=== PATIENT | female | born 1955 | race Caucasian/White ===

== ENCOUNTER 2018-04-04 06:07 | Day surgery (SDC) | payer OTHER ==
[2018-04-02 14:47] VITALS: BMI 23.9
[2018-04-04 07:03] LABS: BASO # 0.02 K/mm3 (0.0-2.0); BASO % 0.2 % (0.0-3.0); EOS # 0.1 (0.0-0.7); GRAN # 4.43 (1.4-6.5); GRAN % 50.6 % (50.0-68.0); HEMOGLOBIN 13.4 g/dL (12.0-16.0); LYMPH # 3.5 (1.2-3.4); LYMPH % 40.4 % (22.0-35.0); MEAN CELL VOLUME 69.2 fl (80.0-105.0); MEAN CORPUSCULAR HEMOGLOBIN 22.2 pg (25.0-35.0); MEAN CORPUSCULAR HGB CONC 32.1 g/dl (31.0-37.0); MONO # 0.7 (0.1-0.6); MONO % 7.8 % (1.0-6.0); RBC 6.03 10^6/uL (3.5-6.1); RED CELL DISTRIBUTION WIDTH 16.1 % (11.5-14.5); WHITE BLOOD COUNT 8.8 10^3/uL (4.5-11.0)
[2018-04-04 07:09] LABS: INR 0.92; PARTIAL THROMBOPLASTIN TIME 27.6 Seconds (25.1-36.5); PROTHROMBIN TIME 10.6 SECONDS (9.4-12.5)
[2018-04-04 07:13] LABS: BLOOD UREA NITROGEN 11 mg/dL (7-21); GFR NON-AFRICAN AMERICAN > 60; HDL CHOLESTEROL 52 mg/dL (29-60)
[2018-04-04 07:23] LABS: LDL CHOLESTEROL 48 mg/dL (0-129)
[2018-04-04] MEDS ORDERED: Iohexol 350mgl/ml 50 ML ONE (07:25)
[2018-04-04] MEDS ORDERED: Lidocaine 2% Inj (20ml) ONE (07:25)
[2018-04-04] MEDS ORDERED: Midazolam 2 MG/2 ML VIAL ONE ×2 (07:43→07:47)
[2018-04-04] MEDS ORDERED: Sodium Chloride 0.9% 1,000 ML IV SCH (08:30)
--- NOTE | 2018-04-04 09:55 | CARD ---
APPROVED REPORT Date of service: 04/04/2018 EKG Measurement Heart [id number] MS 126P-26 [id number] <Conclusion> Sinus bradycardia Otherwise normal ECG
--- NOTE | 2018-04-04 10:12 | CARDCATH ---
PROCEDURE DATE: 04/04/2018 HISTORY: The patient is a 62-year-old woman with multiple cardiac risk factors including diabetes mellitus, hypertension and hypercholesterolemia, who presents with abnormal stress test and chest pain. Because of this, cardiac catheterization was recommended. Her stress test was abnormal. PROCEDURES: Left heart catheterization with coronary arteriography and left ventriculogram followed by PTCA and stent of an LAD. The right femoral artery was cannulated with a 6-Danish sheath. There were no complications. I performed moderate sedation, which included the presence of an independent trained observer that assisted in monitoring the patient's level of consciousness and physiologic status. After administration of Versed and fentanyl, my intra service time was 30 minutes. The findings on catheterization revealed a left ventricle that contracted normally. Estimated ejection fraction of 60%. Her coronary anatomy revealed diffuse calcification. The patient has a left dominant circulation. The RCA was selectively cannulized and found to be a small vessel with diffuse atherosclerosis without critical lesions. The left main artery was free of significant disease. The circumflex artery and obtuse marginal branches revealed intimal irregularities without significant stenoses. The LAD revealed diffuse atherosclerosis with heavy calcification in the proximal and midportion. In the midportion of the LAD, there is an eccentric 80% stenosis noted. The patient was started on intravenous Angiomax under fluoroscopic guide, the guiding catheter was placed in the ostium of left main artery and 0.014 ATW wire was used to cross the vessel and lesion. A two-point 25 x 12 mm drug-eluting stent was placed and deployed at 18 ounces of pressure in the mid LAD lesion. Repeat coronary arteriography revealed an excellent result with no residual stenosis and ZEKE-3 flow. The patient tolerated the procedure well. Angio-Seal was used to close the femoral artery site. In summary, the procedure was successful for PTCA and stent of an 80% mid LAD stenoses. Cardiac catheterization reveals diffuse atherosclerosis with single-vessel CAD and heavy calcification in the proximal and mid LAD. Left ventricle was normal. PRU measurement found that the patient was resistant to Plavix, and the patient was given Effient. Given these findings, the patient will need to remain on aspirin indefinitely, Effient for a year and undergo a strict cardiac risk reduction program. Johnny Henderson MD [facility] # [id number]
[2018-04-04] MEDS ORDERED: Dextrose 50% SYRINGE Inj (50 ml) IV PRN (10:59)
[2018-04-04] MEDS: Insulin Lispro (humaLOG) MEDIUM Coverage SC SCH ×3 (12:25→21:28)
--- NOTE | 2018-04-04 15:37 | CARD ---
APPROVED REPORT Date of service: 04/04/2018 EKG Measurement Heart [id number] LA [id number] [id number] <Conclusion> Normal sinus rhythm Normal ECG
[2018-04-04 19:22] LABS: PH,URINE 6.5 (4.7-8.0); URINE BILIRUBIN NEGATIVE (NEGATIVE); URINE BLOOD SMALL (NEGATIVE); URINE GLUCOSE (UA) >=1000 mg/dL (NEGATIVE); URINE LEUKOCYTE ESTERASE NEGATIVE Leu/uL (NEGATIVE); URINE PROTEIN NEGATIVE mg/dL (<30 mg/dL); URINE UROBILINOGEN 0.2 E.U./dL (<1 E.U./dL)
[2018-04-04 19:23] LABS: URINE APPEARANCE CLEAR (CLEAR); URINE COLOR YELLOW (YELLOW)
[2018-04-04 19:32] LABS: URINE BACTERIA MOD (NEG); URINE WBC 0 - 2 /hpf (0-6)
[2018-04-05 00:23] VITALS: RESP 20; TEMP 98
[2018-04-05] MEDS ORDERED: Pantoprazole 40 mg EC Tab PO SCH (06:00)
[2018-04-05 07:05] VITALS: BP 144/65; O2SAT 97
[2018-04-05] MEDS: Insulin Lispro (humaLOG) MEDIUM Coverage SC SCH (08:11)
[2018-04-05 08:14] LABS: BASO # 0.02 K/mm3 (0.0-2.0); BASO % 0.2 % (0.0-3.0); EOS % 0.5 % (1.5-5.0); GRAN # 4.6 (1.4-6.5); HEMOGLOBIN 12.7 g/dL (12.0-16.0); LYMPH # 3.3 (1.2-3.4); LYMPH % 38.4 % (22.0-35.0); MEAN CORPUSCULAR HGB CONC 31.8 g/dl (31.0-37.0); MEAN PLATELET VOLUME 9.6 fl (7.0-11.0); MONO # 0.6 (0.1-0.6); MONO % 6.9 % (1.0-6.0); RBC 5.78 10^6/uL (3.5-6.1); WHITE BLOOD COUNT 8.5 10^3/uL (4.5-11.0)
[2018-04-05 08:23] LABS: BLOOD UREA NITROGEN 12 mg/dL (7-21); CALCIUM 9.1 mg/dL (8.4-10.5); GFR NON-AFRICAN AMERICAN > 60
--- NOTE | 2018-04-05 08:40 | HP ---
DATE OF EXAM: 04/04/2018 HISTORY OF PRESENT ILLNESS: The patient was admitted by Dr. Johnny Henderson under my service after post angioplasty and cardiac catheterization. The patient is a 62-year-old Brazilian female who was recently found to have an abnormal stress test done on 04/01/2018, which shows reversible inferolateral defect suspicious of ischemia and left ventricle ejection fraction of 72%, and the patient underwent cardiac catheterization and angioplasty and stent placement today. The patient is seen in room 274, bed 2. The patient is seen lying in the bed, is complaining of difficulty urination. The patient's code status FULL CODE. LIVING WILL AND ADVANCE DIRECTIVE: None. Height is 5 feet 3 inches. Weight is 135. BMI is 24. ALLERGIES: PENICILLIN. HOME MEDICATIONS: NovoLog Pen 8 units daily; Levemir 20 units daily; Zebeta, bisoprolol 5 mg daily; Ecotrin 81 mg daily; magnesium oxide 400 mg daily; Diovan 320 mg daily; Coenzyme Q10 10 mg daily; Crestor 10 mg daily; Plavix 75 mg daily; Janumet XR twice a day; Amaryl 2 mg twice a day; vitamin D 5000 units every other day. SOCIAL HISTORY: Negative for substance abuse, negative for alcohol, negative for smoking. 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 FAMILY HISTORY: Not available at present. MENSTRUAL HISTORY: Postmenopausal. PAST MEDICAL AND SURGICAL HISTORY: History of insulin-requiring diabetes mellitus, history of hypertension, history of hypomagnesemia, history of hyperlipidemia, history of hypovitaminosis D, history of colonoscopy and appendectomy, history of vertigo and dizziness, history of . The patient's past medical history is also significant for vertigo and history of diabetes. Past medical history is significant for abnormal stress test, history of dense breast, history of colonic polyp. The patient's past medical history is significant for normocytic anemia, history of uncontrolled diabetes mellitus with hemoglobin A1c of 8.6, history of hemoglobin A1c of consistently greater than 8 and 9, history of proteinuria, and microalbuminuria. Past medical history is also significant for multiple urinary tract infections secondary to Enterococcus faecalis, Escherichia coli, Klebsiella pneumoniae. The patient's past medical history is significant for history of left internal carotid artery 60-79% stenosis and right internal carotid artery 40-59% stenosis, history of hepatic steatosis and fatty liver, history of atelectasis, history of acute appendicitis. The patient's past medical history is significant for history of gallbladder sludge and gallbladder polyp, history of ileocecal valve polyp and polypectomy, history of descending colon polyp with hyperplastic features, history of hypertensive cardiovascular disease, history of hyponatremia, and history of grade 2 internal hemorrhoids. PHYSICAL EXAMINATION: GENERAL: The patient is seen lying in the bed in room 274, bed 2. The patient is complaining of difficulty voiding. VITAL SIGNS: T-max 98.1. Telemetry shows normal sinus rhythm; heart rate 64, 68, 74; blood pressure ranging from 183/73, 129/54, 135/55, 139/76, 153/70; respirations 18; O2 sat is 99%. HEENT AND NECK: The patient's head examination normocephalic, atraumatic. HEENT examination shows pink conjunctivae. Dry oral mucosa. No neck rigidity. CHEST: Symmetrical. LUNGS: Examination shows no audible crackle, rales or wheezing. CARDIOVASCULAR: S1, S2, regular rhythm. No audible murmur, gallop or rub at this time. ABDOMEN: Soft. Suprapubic distention and tenderness and dullness noted with tenderness. GENITALIA: Female. RECTAL: Examination is deferred. Positive groin dressing noted. EXTREMITIES: Show no pitting edema, no calf tenderness, no Homans' sign. Palpable pulses noted. Both feet and lower extremity are warm to touch. Gait examination could not be tested as the patient is lying in the bed. NEUROLOGIC: The patient is alert, awake, and oriented x3, is able to move upper extremity without any resistance. DIAGNOSTICS: WBC 8.8, hemoglobin/hematocrit 13.4/41.7, platelet 242,000, lymphocytes are slightly high at 40.4. PT/PTT 10.6/27.6. Sodium 143, potassium 3.9, chloride 105, CO2 of 30, anion gap 11, BUN 11, creatinine 0.6. GFR greater than 60. Glucose 168. Cholesterol 113, triglyceride 118, LDL 48, HDL 52. TSH is slightly elevated at 5.47. Blood type O positive. The patient underwent cardiac catheterization. The patient's pre and post-cardiac catheterization EKG was reviewed. IMPRESSION: 1. Abnormal cardiac stress test and myocardial stress test with reversible inferolateral ischemic defect with left ventricular ejection fraction of 72%. 2. Left ventricle ejection fraction of 60%. 3. An 80% eccentric mid left anterior descending artery stenosis with heavy calcification of the proximal and midportion of the left anterior descending. 4. Status post successful angioplasty and stent placement of the 80% mid left anterior descending artery stenosis with drug-eluting stent. 5. Plavix resistance. 6. Hypertension. 7. Post-cardiac catheterization urinary retention. 8. Insulin-requiring diabetes mellitus. 9. Lymphocytosis with . 10. Questionable hypothyroidism with elevated TSH of 5.47. 11. O positive blood type. 12. History of insulin-requiring diabetes mellitus, history of hypertension, history of hyperlipidemia, history of hypovitaminosis D. PLAN: At this time, the patient has been admitted post cardiac catheterization post angioplasty to telemetry. The patient has been ordered repeat CBC and repeat basic metabolic panel in the morning. The patient has been ordered fructosamine, GlycoMark. The patient is on aspirin 81, Effient 10 mg, insulin Humalog sliding scale coverage, Lipitor 40 daily, Protonix 40 daily. Repeat EKG has been ordered. Heart-healthy diet has been ordered. The patient is on post-cardiac catheterization angioplasty bedrest. The patient is on diabetic diet and heart healthy diet. The patient has been ordered SCDs, JHONATAN stockings, and fingerstick blood sugar. The patient has been admitted to [facility] telemetry post-angioplasty, post-cardiac catheterization. At present, the patient will be monitored on the telemetry. The patient at present will be continued on post-cardiac catheterization, post-angioplasty protocol.. The patient underwent a bladder scan which showed greater than 500 mL of urine. The patient was straight cath'ed and more than a liter, 1000 mL of clear david urine was drained. Dictated and electronically signed, not read. Maximo Rizvi MD
--- NOTE | 2018-04-05 09:42 | CARD ---
APPROVED REPORT Date of service: 04/05/2018 EKG Measurement Heart [id number] WA 138P15 [id number] <Conclusion> Sinus bradycardia Otherwise normal ECG
[2018-04-05 10:59] VITALS: PULSE 66
--- NOTE | 2018-04-05 13:40 | PN ---
DATE: 04/05/[address] Johnny Henderson. SUBJECTIVE: The patient denies any chest pain, shortness of breath or groin bleeding. No reported arrhythmia. PHYSICAL EXAMINATION: VITAL SIGNS: Blood pressure 144/65, heart rate 60, temperature 98, respiration 20. HEENT: Normocephalic. CHEST: Clear. HEART: Regular. EXTREMITIES: No hematoma. LABORATORY DATA: Shows hemoglobin, hematocrit, white count and platelet count are within normal limits. Today's SMA-7 is within normal limits except for glucose of 215. Today's EKG revealed sinus bradycardia rate of 55. ASSESSMENT: 1. One coronary artery disease status post successful percutaneous transluminal coronary angioplasty and stent to 80% stenosis within the left anterior descending which was heavily calcified. 2. Plavix resistance. 3. Uncontrolled diabetes mellitus. 4. Hypertension. PLAN: The patient can be discharged on Effient 10 mg once a day, aspirin 81 mg once a day, Lipitor 40 mg once a day, to be followed by Dr. Johnny Henderson as an outpatient. The patient was instructed not to drive until Sunday and not to go back to work until she checks with Dr. Johnny Henderson. Aba Estrada MD
--- NOTE | 2018-04-06 04:22 | DS ---
FINAL PROGRESS NOTE/DISCHARGE SUMMARY HISTORY OF PRESENT ILLNESS: The patient is discharged from [facility], 2 after the patient was observed overnight for post-angioplasty, post procedure protocol. The patient's overnight nurse's notes were reviewed. The patient's groin side was without any complication, without any hematoma, expect for slight bruising, which is usually associated with these procedures, but no bleeding or hematoma was noted. Pulses were palpable. The patient's urinary retention which the patient had immediately post-angioplasty has resolved, for which patient required straight catheterization and the patient drained yesterday more than 1000 mL of urine. Overnight, the patient slept well without any adverse events documented by the nurses. The patient was seen by leave manager and was cleared for discharge. The patient's, vital signs, T-max overnight 98 degrees Fahrenheit. Telemetry shows normal sinus rhythm, heart rate 60-55, blood pressure 145/65, respirations 20, and O2 saturation 97%. According to the nurse's note, patient's groin examination was negative for hematoma, bleeding, slight bruising was noted as mentioned which is very common in these post-angioplasty patients. The patient was found to be ambulating as per the nursing note without any assistance. The patient is able to void without any issues. DIAGNOSTICS: WBC 8.5, hemoglobin and hematocrit 12.7. and 39.9, platelets are 212,000. Sodium 141, potassium 4.1, chloride 106, CO2 of 28, BUN 12, creatinine 0.7, glucose 215. Fingerstick blood sugar 215, 209, 235, and 365. Fructosamine 371. TSH 5.47. Urinalysis shows blood, bacteria. EKG from today shows sinus bradycardia without any ST elevation or depression. Hemoglobin A1c is pending. Lipid panel from yesterday reviewed. The patient was cleared for discharge by Cardiology. FINAL IMPRESSION, PLAN, AND DISCHARGE DIAGNOSES: 1. Single-vessel coronary artery disease. 2. Status post angioplasty and drug-eluting stent placement. 3. Abnormal myocardial perfusion study with ischemic changes. 4. Hypertension. 5. Uncontrolled insulin requiring diabetes mellitus with hyperglycemia. 6. Hyperfructosemia. 7. Questionable and possible hypothyroidism with elevated TSH of 5.47. 8. Microscopic hematuria, bacteriuria. 9. Asymptomatic bradycardia. 10. Questionable urinary retention post-angioplasty and cardiac catheterization (resolved). 11. History of insulin-requiring diabetes mellitus. 12. History of hypertension. 13. History of hyperlipidemia. PLAN: At this time; 1. The patient is cleared for discharge by Cardiology. 2. Discharge followup with the patient's primary care physician, . The patient is to follow up with felt washing machine tender, Dr. Kinza Garcia. The patient is to follow up with Dr. Johnny Henderson. 3. The patient is advised to release all records to PMD, felt washing machine tender, and Cardiology. The patient was advised to have repeat thyroid panel done because the patient's TSH was slightly elevated at 5.47. The patient was advised to increase water intake and frequent voiding. DISCHARGE MEDICATIONS: The patient is to resume all home medications except patient's Plavix is substituted to Effient 10 mg daily. The patient was advised to discuss with the PMD regarding continuation of the Diovan or substituting Diovan to another angiotensin receptor evert due to Diovan being recalled. Time spent in the discharge process was 45 minutes. Dictated and electronically signed, not read. Maximo Rizvi MD
[2018-04-07 22:02] LABS: GLYCOMARK(R) 2.7 mcg/mL (7.5-28.4)
== END 2018-04-05 13:00 | disposition home or self-care (01) ==
LOC: CATH 06:07 → 2RSO 08:37 → CATH 04-05 13:00
PROVIDERS: ATTEND Internal Medicine Cardiovascular Disease
DX: I25.10 Atherosclerotic heart disease of native coronary artery without angina pectoris (principal); I11.9 Hypertensive heart disease without heart failure; E11.65 Type 2 diabetes mellitus with hyperglycemia; E78.00 Pure hypercholesterolemia, unspecified; E55.9 Vitamin D deficiency, unspecified; E78.5 Hyperlipidemia, unspecified; D64.9 Anemia, unspecified; D72.820 Lymphocytosis (symptomatic); Z86.010 Personal history of colon polyps; Z79.82 Long term (current) use of aspirin; Z79.4 Long term (current) use of insulin; Z88.0 Allergy status to penicillin
CPT/HCPCS: 36415 ×2; 80048 ×2; 80061; 81001; 82948 ×2; 82985; 84378; 84436; 84443; 85025 ×2; 85576; 85610; 85730; 86850; 86900; 93005 ×2; 93458; 99152; C1760; C1769 ×2; C1874; C1887; C2629; C9600; J0360; J0583; J1644; J2250; J3010; J7030; J7040; Q9967 ×2

== ENCOUNTER 2018-05-10 07:12 | Day surgery (SDC) | payer OTHER ==
[2018-05-09 08:50] VITALS: BMI 24.0
[2018-05-10 07:47] LABS: BASO # 0.02 K/mm3 (0.0-2.0); BASO % 0.2 % (0.0-3.0); EOS # 0.1 (0.0-0.7); EOS % 0.8 % (1.5-5.0); GRAN # 5.3 (1.4-6.5); GRAN % 60.4 % (50.0-68.0); HEMOGLOBIN 12.3 g/dL (12.0-16.0); LYMPH # 2.9 (1.2-3.4); LYMPH % 32.9 % (22.0-35.0); MEAN CELL VOLUME 69.2 fl (80.0-105.0); MEAN CORPUSCULAR HEMOGLOBIN 21.6 pg (25.0-35.0); MEAN CORPUSCULAR HGB CONC 31.2 g/dl (31.0-37.0); MEAN PLATELET VOLUME 9.8 fl (7.0-11.0); MONO # 0.5 (0.1-0.6); MONO % 5.7 % (1.0-6.0); RBC 5.69 10^6/uL (3.5-6.1); RED CELL DISTRIBUTION WIDTH 15.3 % (11.5-14.5); WHITE BLOOD COUNT 8.8 10^3/uL (4.5-11.0)
[2018-05-10 07:55] LABS: INR 0.89; PARTIAL THROMBOPLASTIN TIME 26.8 Seconds (25.1-36.5); PROTHROMBIN TIME 10.2 SECONDS (9.4-12.5)
[2018-05-10 07:56] LABS: BLOOD UREA NITROGEN 13 mg/dL (7-21); CALCIUM 9.2 mg/dL (8.4-10.5); GFR NON-AFRICAN AMERICAN > 60
[2018-05-10] MEDS ORDERED: Lidocaine 2% Inj (20ml) ONE (09:39)
[2018-05-10] MEDS ORDERED: Midazolam 2 MG/2 ML VIAL ONE ×2 (09:39→10:01)
[2018-05-10] MEDS ORDERED: Iodixanol 320 MG/ML 200 ML BOTTLE IV ONE (09:40)
[2018-05-10] MEDS ORDERED: Sodium Chloride 0.9% 1,000 ML IV SCH (10:30)
--- NOTE | 2018-05-10 12:36 | CARDCATH ---
PROCEDURE DATE: 05/10/2018 HISTORY: The patient is a 62-year-old woman who presents with a history of diabetes mellitus and previous PTCA, who presents with exertional angina including angina at rest. Because of this, cardiac catheterization was recommended. PROCEDURE: Left heart catheterization with coronary arteriography and left ventriculogram followed by PTCA and stent of the circumflex artery. The right femoral artery was cannulated with a 6-Turkmen sheath. There were no complications. I performed moderate sedation which included the presence of an independent trained observer that assisted in monitoring the patient's level of consciousness and physiologic status. After administration of Versed and fentanyl, my intra service time was 30 minutes. The findings on catheterization revealed a left dominant circulation. The RCA was selectively cannulized and found to have intimal irregularities without significant stenoses. The left main artery was unremarkable. The LAD and diagonal vessels revealed intimal irregularities with a patent stent in the mid portion. The circumflex artery which was a dominant vessel revealed 80% stenoses just before the takeoff of the PDA. LV function was found to be normal with an EF of 65-70%. The patient was started on intravenous Angiomax on the fluoroscopic guide and the guiding catheter was placed in the ostium of the left main artery. An 0.014 ATW wire was used to cross the critical lesion in the circumflex artery. A 2.25 x 12 mm drug-eluting stent was placed and deployed at 14 ounces of pressure. Repeat coronary arteriography revealed an excellent result with no residual stenosis and ZEKE III flow. Angio-Seal was used to close the femoral artery site. The patient tolerated the procedure well. In summary, the procedure was successful PTCA and stent of 80% stenoses in a dominant circumflex artery just before the PDA. A drug-eluting stent was utilized. Catheterization revealed a patent stent in the mid LAD with normal LV function. Given these findings, the patient will need to remain on aspirin indefinitely and Effient for at least a year. The patient is resistant to Plavix. Johnny Henderson MD
[2018-05-10] MEDS: Insulin Reg-MEDIUM-Coverage SC SCH ×2 (17:46→22:21)
--- NOTE | 2018-05-10 18:48 | CARD ---
APPROVED REPORT Date of service: 05/10/2018 EKG Measurement Heart [id number] WV 146P41 [id number] <Conclusion> Normal sinus rhythm Normal ECG
--- NOTE | 2018-05-10 18:50 | CARD ---
APPROVED REPORT Date of service: 05/10/2018 EKG Measurement Heart [id number] MD 144P51 [id number] <Conclusion> Normal sinus rhythm Nonspecific ST changes Abnormal ECG
[2018-05-11 02:18] VITALS: O2SAT 98
[2018-05-11 05:40] VITALS: BP 128/65; RESP 20; TEMP 97.9
[2018-05-11 06:18] VITALS: PULSE 57
[2018-05-11 08:08] LABS: BASO # 0.02 K/mm3 (0.0-2.0); BASO % 0.2 % (0.0-3.0); EOS # 0.1 (0.0-0.7); EOS % 0.6 % (1.5-5.0); GRAN # 4.66 (1.4-6.5); GRAN % 57.4 % (50.0-68.0); HEMOGLOBIN 11.4 g/dL (12.0-16.0); LYMPH # 2.8 (1.2-3.4); LYMPH % 34.6 % (22.0-35.0); MEAN CELL VOLUME 68.7 fl (80.0-105.0); MEAN CORPUSCULAR HEMOGLOBIN 21.4 pg (25.0-35.0); MEAN CORPUSCULAR HGB CONC 31.1 g/dl (31.0-37.0); MEAN PLATELET VOLUME 10.2 fl (7.0-11.0); MONO # 0.6 (0.1-0.6); MONO % 7.2 % (1.0-6.0); RBC 5.33 10^6/uL (3.5-6.1); RED CELL DISTRIBUTION WIDTH 15.4 % (11.5-14.5); WHITE BLOOD COUNT 8.1 10^3/uL (4.5-11.0)
[2018-05-11 08:28] LABS: BLOOD UREA NITROGEN 15 mg/dL (7-21); CALCIUM 8.6 mg/dL (8.4-10.5); GFR NON-AFRICAN AMERICAN > 60
[2018-05-11] MEDS: Insulin Reg-MEDIUM-Coverage SC SCH ×2 (09:53→12:12)
--- NOTE | 2018-05-11 10:53 | PN ---
CARDIOLOGY FOLLOWUP DATE: 05/11/2018 SUBJECTIVE: The patient is chest pain free. She is eating without symptoms. PHYSICAL EXAMINATION: VITAL SIGNS: Blood pressure is 128/65 and heart rates in the 60s. NECK: Negative JVD. LUNGS: Without rales. HEART: Reveals S1 and S2. EXTREMITIES: Without edema. Right groin site is stable. LABORATORY DATA: Hemoglobin is 11.4. Chemistries, BUN and creatinine unremarkable. Glucose is 187. IMPRESSION: 1. Status post percutaneous transluminal coronary angioplasty and stent of the circumflex artery. 2. Patent stent in the left anterior descending. 3. Diabetes mellitus. 4. Hypercholesterolemia. 5. Hypertension. Given these findings, the patient is stable for discharge today. I have discussed cardiac risk reduction program with the patient including a change in diet and exercise program has been recommended. Follow up and instructions have been given to the patient in detail. Johnny Henderson MD
--- NOTE | 2018-05-11 14:38 | CARD ---
APPROVED REPORT Date of service: 05/11/2018 EKG Measurement Heart [id number] MD 140P9 [id number] <Conclusion> Sinus bradycardia Nonspecific T wave abnormality Abnormal ECG
--- NOTE | 2018-05-11 22:24 | DS ---
HISTORY OF PRESENT ILLNESS: She was cath yesterday by Dr. Henderson for CAD. She also has diabetes. She was doing well. Her blood pressure was little bit up this morning 170/80 something and she was concerned, so I took her blood pressure, was 138/78, we are happy with that. She is on Ecotrin, Effient, Lipitor and Zofran. She is feeling better now. The legs are okay. She has walked to the bathroom fine. She is eating. PHYSICAL EXAMINATION: VITAL SIGNS: A 97.9 temperature, 64 pulse, 120/65 blood pressure, I got 138/78 blood pressure, 20 respiratory rate, 90% sat on room air. HEENT: Head is atraumatic, normocephalic. HEART: Regular rate. LUNGS: Clear to auscultation. ABDOMEN: Soft. EXTREMITIES: No edema. No chest pain or shortness of breath. No abdominal pain. She is doing much better after the cardiac cath and stent. LABORATORY DATA: She has an 8.1 white count, 11.4 hemoglobin, 36.6 hematocrit with 221 platelets. 139 sodium, potassium 4, BUN 15, creatinine 0.8, GFR greater than 60, sugar is 187, calcium is 8.6. PLAN: She will be followed up in the outpatient with Dr. Henderson and PMD. Hopefully, she continue to do very well. She has CAD with stent placement and diabetes. Irwin Blackburn DO
--- NOTE | 2018-05-13 08:20 | HP ---
DATE OF EXAM: 05/10/2018 HISTORY OF PRESENT ILLNESS: I was called by Dr. Henderson to admitted to [facility]3]. He recently did a cardiac cath with stent placement and now she is resting comfortably in bed, lying flat for 6 hours. She is able to eat. She is comfortable, good spirits. She has a history of shortness of breath. Advised to have a catheterization, had a catheterization, was stented with a stent. She has a past medical history of diabetes, coronary artery disease, high cholesterol, hypertension, and her recent sugar is 152 for diabetes. Her mother had pancreas cancer. She had a x2, eyelid surgery, EGDs, colonoscopies, appendicitis, catheterization and stents in the past. Father had mitral valve prolapse. She is diabetic, she is on insulin. ALLERGIES: SHE HAS ALLERGIES TO PENICILLIN. MEDICATIONS: Her medication list consists of aspirin, Effient, metformin, Janumet, detemir , magnesium oxide, insulin, vitamin D, and Zebeta. REVIEW OF SYSTEMS: No acute vision or hearing issues. No sore throat. No chest pain. shortness of breath, also shortness of breath with exertion. No abdominal pain. No nausea , vomiting, constipation or diarrhea. Not anxious, not depressed, understand the situation. PHYSICAL EXAMINATION: VITAL SIGNS: Temp 97.9, 69 pulse, 107/52 blood pressure, 18 respiratory rate and 100% O2 sat on room air. HEENT: Head atraumatic, normocephalic. Extraocular muscles are intact. Throat is moist. NECK: Supple. HEART: Regular rate. LUNGS: Decreased breath sounds, but clear auscultation. She is lying flat. ABDOMEN: Soft, nontender. Positive bowel sounds. EXTREMITIES: No edema. SKIN: intact. NEUROLOGIC: She is alert and oriented x3, very pleasant. She is currently on Ecotrin, Effient, Lipitor, IV fluid, and I put her on insulin coverage. LABORATORY DATA: She has 142 sodium, potassium 4.2, BUN 13, creatinine 0.7, GFR is greater than 60, sugar is calcium is 9.2 and INR is 0.89. White count is 8.8 and now hemoglobin 12.3, hematocrit 39.4 and platelets are 235. IMPRESSION AND PLAN: She is status post cardiac catheterization with stent placement. She will be lying flat for 6 hours. I discussed with her she cannot move, but she could lay flat on her bed and then eventually she will have to get up and sit in a chair and do more. She will be on insulin coverage, so I am not going to put her on regular medication until tomorrow and hopefully she could do very well. Irwin Blackburn DO MTDD
== END 2018-05-11 17:42 | disposition home or self-care (01) ==
LOC: CATH 07:12 → 2RSO 10:50 → CATH 05-11 17:42
PROVIDERS: ATTEND Internal Medicine Cardiovascular Disease
DX: I25.118 Atherosclerotic heart disease of native coronary artery with other forms of angina pectoris (principal); E11.9 Type 2 diabetes mellitus without complications; E78.00 Pure hypercholesterolemia, unspecified; I10 Essential (primary) hypertension; Z79.4 Long term (current) use of insulin; Z79.82 Long term (current) use of aspirin; Z88.0 Allergy status to penicillin; Z80.0 Family history of malignant neoplasm of digestive organs; Z98.61 Coronary angioplasty status
CPT/HCPCS: 36415 ×2; 80048 ×2; 82948 ×2; 85025 ×2; 85610; 85730; 86850; 86900; 93005 ×2; 93458; 99152; 99153; C1760; C1769 ×2; C1874; C1887; C2629; C9600; J0360; J0583; J1644; J2250; J2405; J3010; J7030; Q9966

== ENCOUNTER 2018-06-15 10:01 | Outpatient (CLI) | payer OTHER | END 2018-06-15 10:02 | disposition home or self-care (01) | LOC: RAD 10:01 ==

== ENCOUNTER 2018-06-17 10:10 | Outpatient (CLI) | payer OTHER | END 2018-06-17 10:11 | disposition home or self-care (01) | LOC: RAD 10:10 | DX: K21.9 Gastro-esophageal reflux disease without esophagitis (principal) ==

== ENCOUNTER 2018-07-25 10:45 | Emergency (ER) | payer OTHER ==
[2018-07-25 10:46] VITALS: BMI 24.0
[2018-07-25 11:00] VITALS: TEMP 98.7
--- NOTE | 2018-07-25 11:31 | ED PDOC ---
Arrival/HPI - General Chief Complaint: Eye Problem Time Seen by Provider: 07/25/18 11:11 Historian: Patient - History of Present Illness Narrative History of Present Illness (Text): 07/25/18 11:21 62 F with PMHx of CAD with cardiac stents presents to the ED with right eye foreign body sensation, corneal bleeding, and blurred vision. Onset of event today at approximately 10:40 am. No trauma, patient first noticed abnormal sensa tion in eye, then looked in mirror and noticed bloody eye. Patient denies any headache, no eye pain, no pain with ocular movement. Vision in right eye is blurred, she is able to distinguish color, gross objects but the vision is simply blurred. Patient has no other complaints at this time. Time/Duration: 1-3 hours (Patient notes onset as approximately 10:40 today ) Symptom Onset: Sudden Symptom Course: Unchanged Activities at Onset: Light Past Medical History - Provider Review Nursing Documentation Reviewed: Yes - Infectious Disease Hx of Infectious Diseases: None - Reproductive Menopause: Yes - Cardiac Hx Cardiac Disorders: Yes Hx Hypertension: Yes Other/Comment: cardiac stent - Pulmonary Hx Respiratory Disorders: No - Neurological Hx Paralysis: No - HEENT Hx HEENT Disorder: Yes - Renal Hx Renal Disorder: No - Endocrine/Metabolic Hx Endocrine Disorders: Yes Hx Diabetes Mellitus Type 2: Yes - Hematological/Oncological Hx Blood Transfusions: No - Integumentary Hx Dermatological Disorder: No - Musculoskeletal/Rheumatological Hx Musculoskeletal Disorders: No - Gastrointestinal Hx Gastrointestinal Disorders: No - Genitourinary/Gynecological Hx Genitourinary Disorders: No - Psychiatric Hx Emotional Abuse: No Hx Physical Abuse: No Hx Substance Use: No - Surgical History Hx Section: Yes (2x) - Anesthesia Hx Anesthesia Reactions: No Hx Malignant Hyperthermia: No - Suicidal Assessment Feels Threatened In Home Enviroment: No Family/Social History - Physician Review Nursing Documentation Reviewed: Yes Family/Social History: No Known Family HX Smoking Status: Never Smoked Hx Alcohol Use: No Hx Substance Use: No Allergies/Home Meds Allergies/Adverse Reactions: Allergies Penicillins Allergy (Verified 11/08/15 10:33) Home Medications: Home Meds Medication Instructions Recorded Confirmed Bisoprolol [Zebeta] 5 mg PO DAILY 01/19/18 05/10/18 Rosuvastatin Calcium [Crestor] 10 mg PO DAILY 01/19/18 05/10/18 Valsartan [Diovan] 320 mg PO DAILY PRN 01/19/18 05/10/18 Aspirin [Ecotrin] 81 mg PO DAILY 01/20/18 05/10/18 Cholecalciferol [Vitamin D 1000 IU] 5,000 unit PO QOTHERDAY 02/13/18 05/10/18 Sitagliptin Phos/Metformin HCl 1 tab PO BID 02/13/18 05/10/18 [Janumet Xr 50-1,000 mg Tablet] Glimepiride [amaRYL] 1 tab PO BID 04/01/18 05/10/18 Magnesium Oxide [Magnesium] 400 mg PO DAILY 04/01/18 05/10/18 Ubidecarenone [Co Q-10] 10 mg PO DAILY 04/01/18 05/10/18 Insulin Aspart [Novolog Flexpen] 8 unit SQ ACTID 04/04/18 05/10/18 Insulin Detemir [Levemir] 20 unit SQ DAILY 04/04/18 05/10/18 Review of Systems - Physician Review All systems were reviewed & negative as marked: Yes (All other systems negative except that noted in the HPI.) Physical Exam - Physical Exam Narrative Physical Exam (Text): 07/25/18 11:34 Gen: VS reviewed, alert, well developed, well nourished, nontoxic, mild dist ress Eye: EOMI, PERRL, there is moderate corneal hemorrhage with pooling of blood in the inferior aspect of the hematoma. the hemtoma extends from most of the medial cornea to the inferior aspect to the lateral aspect but does not involve in the far lateral aspect of the cornea Neck: no JVD, supple, no adenopathy CV: regular rate, regular rhythm, no rubs,no murmur, S1, S2 Pulm: no distress, clear to auscultation, no wheeze, no rhonchi, breath sounds equal, no rales Ext: no edema Skin: good color, no rash, no cyanosis Psych: responds appropriately to questions, normal affect Neuro: oriented x3, CN2-12 intact grossly, motor intact, sensation intact Vital Signs Reviewed: Yes Vital Signs Temp Pulse Resp BP Pulse Ox 07/25/18 10:55 98.7 F 68 18 193/82 H 99 Temperature: Afebrile Blood Pressure: Hypertensive Pulse: Regular Respiratory Rate: Normal Appearance: Positive for: Well-Appearing, Non-Toxic Pain Distress: Mild Mental Status: Positive for: Alert and Oriented X 3 Medical Decision Making ED Course and Treatment: 07/25/18 Impression: 62 year old female who presents to the Emergency department with right eye foreign body sensation, corneal bleeding, and blurred vision. Differential Diagnosis included but are not limited to: Plan: -- Labs -- CT of Orbits/Facials w/o contrast -- Reassess and disposition Prior Visits: Notes and results from previous visits were reviewed. Patient was last seen in the emergency department on 01/20/18 for evaluation of periumbilical abdominal pain and diarrhea which began today. Patient was hospitalized in good condition with clinical impression of appendicitis. Progress Notes: 07/25/18 11:38 Awaiting call back from Dr. Sanchez demand generation manager for ophthalmology. As per the service, he is currently operating. At this time will place call to [facility] for transfer. 07/25/18 12:09 12:[address] fallon davis, ophthmaology at [facility] in [place], states he will run the case by senior and call back for further discussion. 07/25/18 12:[address] davis from [facility], transfer refused at this time as they state they cannot accept transfer without ophthalmology evaluation at our institution. i will place another phone call to dr. sanchez to attempt to have a direct discussion. 07/25/18 13:[address] valentin, ophthmaology, states that the clijnical presentation is likely a large subconjunctival bleed especially since vision is 20/20 and that the patient can be seen now in the office for emergent evaluation. i have discussed this with the patient and she understands and is agreeable to plan and she will go straight to the office in [place] ([facility] on [address]). patient was given website printout and map directions (3 min walk). patient is clinically stable for discharge. - RAD Interpretation Narrative RAD Interpretations (Text): CT of Orbits/Facials reviewed by radiologist, shows: Dictated By: Kumar Marx Dictated Date/Time: 07/25/18 11:50 Impression: Unremarkable non contrast enhanced CT of the orbits. No orbital hemorrhage appreciable bilaterally. Radiology Orders: 07/25/18 11:19 ORBITS/ FACIALS W/O CONTRAST [CT] Stat Steam Locomotive Firer/Fireman: Radiologist - Scribe Statement The provider has reviewed the documentation as recorded by the Scribe Minerva Morrison All medical record entries made by the Scribe were at my direction and personally dictated by me. I have reviewed the chart and agree that the record accurately reflects my personal performance of the history, physical exam, medical decision making, and the department course for this patient. I have also personally directed, reviewed, and agree with the discharge instructions and disposition. Disposition/Present on Arrival - Present on Arrival Any Indicators Present on Arrival: No History of DVT/PE: No History of Uncontrolled Diabetes: Yes Urinary Catheter: No History of Decub. Ulcer: No History Surgical Site Infection Following: None - Disposition Have Diagnosis and Disposition been Completed?: Yes Diagnosis: Subconjunctival bleed Disposition: HOME/ ROUTINE Disposition Time: 13:13 Patient Plan: Discharge Condition: STABLE Discharge Instructions (ExitCare): Subconjunctival Hemorrhage Referrals: Dutch Zamudio MD [Primary Care Provider] - Follow up with primary Bassam Valentin MD [Staff Provider] - Follow up with primary Forms: [facility] ([place])
[2018-07-25 11:39] LABS: BASO # 0.02 K/mm3 (0.0-2.0); BASO % 0.2 % (0.0-3.0); EOS % 0.5 % (1.5-5.0); LYMPH % 36.3 % (22.0-35.0); MEAN CELL VOLUME 69.1 fl (80.0-105.0); MEAN CORPUSCULAR HEMOGLOBIN 21.7 pg (25.0-35.0); MEAN CORPUSCULAR HGB CONC 31.4 g/dl (31.0-37.0); MEAN PLATELET VOLUME 9.9 fl (7.0-11.0); MONO # 0.6 (0.1-0.6); MONO % 6.7 % (1.0-6.0); RBC 5.53 10^6/uL (3.5-6.1); RED CELL DISTRIBUTION WIDTH 16.7 % (11.5-14.5); WHITE BLOOD COUNT 8.3 10^3/uL (4.5-11.0)
[2018-07-25 11:48] LABS: INR 0.94; PARTIAL THROMBOPLASTIN TIME 30.1 Seconds (26.9-38.3); PROTHROMBIN TIME 10.6 SECONDS (9.4-12.5)
[2018-07-25 11:49] LABS: ALB/GLOB RATIO 1.2 (1.1-1.8); ALBUMIN 4.2 g/dL (3.0-4.8); ALT/SGPT 14 U/L (7-56); AST/SGOT 24 U/L (14-36); BLOOD UREA NITROGEN 16 mg/dL (7-21); CALCIUM 9.4 mg/dL (8.4-10.5); GFR NON-AFRICAN AMERICAN > 60
--- NOTE | 2018-07-25 11:51 | CT ---
Date of service: 07/25/2018 PROCEDURE: CT ORBITS WITHOUT CONTRAST. HISTORY: retrobulbar bleed COMPARISON: None available. TECHNIQUE: Axial CT images of the orbits were obtained. Coronal and sagittal reformats were generated. Radiation dose: Total exam DLP = 819.12 mGy-cm. This CT exam was performed using one or more of the following dose reduction techniques: Automated exposure control, adjustment of the mA and/or kV according to patient size, and/or use of iterative reconstruction technique. FINDINGS: RIGHT ORBIT: RIGHT BONY ORBIT: Normal. RIGHT INTRAORBITAL STRUCTURES: Globe: Normal. Extraocular muscles: Normal. Post septal space: Normal. Optic Nerve: Normal. Lacrimal Apparatus: Normal. RIGHT PRESEPTAL SOFT TISSUES: Normal. LEFT ORBIT: LEFT BONY ORBIT: Normal. LEFT INTRAORBITAL STRUCTURES: Globe: Normal. Extraocular muscles: Normal. Post septal space: Normal Optic Nerve: Normal. . Lacrimal Apparatus: Normal. LEFT PRESEPTAL SOFT TISSUES: Normal. OTHER: Incidental left maxillary sinus polyp or retention cyst. IMPRESSION: Unremarkable non contrast enhanced CT of the orbits. No orbital hemorrhage appreciable bilaterally.
[2018-07-25 12:29] VITALS: PULSE 55; RESP 20; O2SAT 98
[2018-07-25 13:24] VITALS: BP 175/80
== END 2018-07-25 13:40 | disposition home or self-care (01) ==
LOC: ED 10:45
DX: H11.31 Conjunctival hemorrhage, right eye (principal); I10 Essential (primary) hypertension; E11.9 Type 2 diabetes mellitus without complications; Z95.5 Presence of coronary angioplasty implant and graft

== ENCOUNTER 2018-08-14 09:59 | Outpatient (CLI) | payer OTHER | END 2018-08-14 10:00 | disposition home or self-care (01) | LOC: LAB 09:59 ==

== ENCOUNTER 2018-09-16 10:06 | Outpatient (CLI) | payer OTHER | END 2018-09-16 10:07 | disposition home or self-care (01) | LOC: RAD 10:06 ==